=== PATIENT | male | born 1960 | race Caucasian/White ===

== ENCOUNTER 2025-05-10 08:41 | Outpatient (RCR) | payer OTHER, SELFPAY | END 2025-05-14 23:59 | disposition home or self-care (01) | LOC: GPT 08:41 | PROVIDERS: Visit Provider Family Medicine | DX: M25.552 Pain in left hip (principal) | CPT/HCPCS: 97110; 97112; 97140; 97161 ==

== ENCOUNTER 2025-05-31 07:03 | Outpatient (RCR) | payer OTHER, SELFPAY | END 2025-06-14 23:59 | disposition home or self-care (01) | LOC: GPT 07:03 | PROVIDERS: Visit Provider Family Medicine | DX: M25.552 Pain in left hip (principal) | CPT/HCPCS: 97110; 97112; 97140 ==